=== PATIENT | female | born 2005 | race Caucasian/White ===

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

== ENCOUNTER → 2025-01-09 | Outpatient (REF) | payer OTHER ==
[~2025-01-09] MED LIST changes: -GASTROGRAFIN SOLUTION 30ML As Ordered ONE; -ISOVUE-370 76% 100ML VIAL As Ordered ONE
[2025-01-09 17:00] LABS: BASO # 0.1 10^3/uL (0.0-0.2); BASO % 0.6 % (0.0-1.0); EOS # 0.1 10^3/uL (0.0-0.5); EOS % 0.8 % (0.0-3.0); HEMATOCRIT 43.5 % (36.0-47.0); HEMOGLOBIN 13.8 g/dl (12.0-15.5); LYMPH # 2.5 10^3/uL (1.5-5.0); LYMPH % 32.5 % (24.0-44.0); MEAN CORPUSCULAR HEMOGLOBIN 26.6 pg (27.0-33.0); MEAN CORPUSCULAR HGB CONC 31.7 g/dl (32.0-36.5); MEAN CORPUSCULAR VOLUME 83.8 fl (80.0-96.0); MONO # 0.5 10^3/uL (0.0-0.8); MONO % 6.4 % (2.0-8.0); NEUTROPHILS # 4.6 10^3/uL (1.5-8.5); NEUTROPHILS % 59.4 % (36.0-66.0); PLATELET COUNT, AUTOMATED 325 10^3/uL (150-450); RED BLOOD COUNT 5.19 10^6/uL (4.00-5.40); WHITE BLOOD COUNT 7.8 10^3/uL (4.0-10.0)
[2025-01-09 17:29] LABS: C REACTIVE PROTEIN QUANTITATIV 0.53 MG/DL (<1.0)
[2025-01-09 17:30] LABS: FERRITIN 50.9 NG/ML (7.3-270.7); FOLATE 7.15 NG/ML (>5.4); TOTAL 25(OH) VITAMIN D 22.5 NG/ML (20.0-100.0); TOTAL IRON BINDING CAPACITY 358 UG/DL (250-425)
[2025-01-09 17:32] LABS: ALKALINE PHOSPHATASE 73 U/L (35-104); ALT/SGPT 42 U/L (7.0-40); AST/SGOT 20 U/L (<34); BILIRUBIN,DIRECT 0.1 MG/DL (<0.4); BILIRUBIN,TOTAL 0.4 MG/DL (0.3-1.2); BLOOD UREA NITROGEN 12 MG/DL (9-23); CALCIUM LEVEL 9.9 MG/DL (8.5-10.1); CARBON DIOXIDE LEVEL 27 MMOL/L (20-31); CHLORIDE LEVEL 102 MMOL/L (98-107); CREATININE FOR GFR 0.61 MG/DL (0.55-1.30); GLUCOSE, FASTING 71 MG/DL (60-100); IRON (FE) 35 UG/DL (50-170); PERCENT SATURATION 9.8 % (13.2-45.0); PHOSPHORUS LEVEL 4.5 MG/DL (2.5-4.9); POTASSIUM SERUM 4.5 MMOL/L (3.5-5.1); SODIUM LEVEL 144 MMOL/L (136-145); TOTAL PROTEIN 7.3 G/DL (5.7-8.2); VITAMIN B12 LEVEL 637 PG/ML (211-911)
== END ==
LOC: M SFHCRHEU 10:36
PROVIDERS: ATTEND Internal Medicine
DX: R53.83 Other fatigue (principal); R79.82 Elevated C-reactive protein (CRP)

== ENCOUNTER → 2025-01-31 | Outpatient (CLI) | payer OTHER | LOC: M SLEEP HO 11:04 | PROVIDERS: ATTEND Internal Medicine | DX: R53.83 Other fatigue (principal); G47.9 Sleep disorder, unspecified ==

== ENCOUNTER → 2025-05-31 | Outpatient (CLI) | payer OTHER | LOC: M RAD 08:50 | PROVIDERS: ATTEND Physician Assistant | DX: S52.224D Nondisplaced transverse fracture of shaft of right ulna, subsequent encounter for closed fracture with routine healing (principal); S50.01XD Contusion of right elbow, subsequent encounter ==